=== PATIENT | male | born 1940 | race Caucasian/White ===

== ENCOUNTER 2017-10-03 11:58 | Day surgery (SDC) | payer MEDICARE, OTHER ==
[~2017-10-03] VITALS: Ht 182.9 cm; Wt 135.8 kg
[2017-10-03] MEDS ORDERED: MOME220I (13:06)
[2017-10-03] MEDS ORDERED: Plavix75 MG (13:06)
[2017-10-03] MEDS ORDERED: FISH OIL + D31 EACH (13:07)
[2017-10-03] MEDS ORDERED: LISI20 PO (13:07)
[2017-10-03] MEDS ORDERED: Alphagan P 5ML5 ML (13:08)
[2017-10-03] MEDS ORDERED: CARV25 PO (13:08)
[2017-10-03] MEDS ORDERED: Travatan Z5 ML (13:08)
[2017-10-03] MEDS ORDERED: DORZOPSO (13:09)
[2017-10-03] MEDS ORDERED: TERA5 (13:09)
[2017-10-03] MEDS ORDERED: METFORMIN HCL500 MG (13:10)
== END 2017-10-03 15:01 | disposition home or self-care (01) ==
LOC: ORSCSDS 11:58
PROVIDERS: Internal Medicine Gastroenterology
PROC: 0DJD8ZZ Inspection of Lower Intestinal Tract, Via Natural or Artificial Opening Endoscopic (ICD-10-PCS; principal; 2017-10-03 13:45)
DX: Z12.11 Encounter for screening for malignant neoplasm of colon (principal); K57.30 Diverticulosis of large intestine without perforation or abscess without bleeding; I10 Essential (primary) hypertension; Z87.891 Personal history of nicotine dependence; J44.9 Chronic obstructive pulmonary disease, unspecified; G47.33 Obstructive sleep apnea (adult) (pediatric); E11.9 Type 2 diabetes mellitus without complications; E66.01 Morbid (severe) obesity due to excess calories; Z68.41 Body mass index [BMI] 40.0-44.9, adult; Z79.899 Other long term (current) drug therapy
CPT/HCPCS: 82947; J7120

== ENCOUNTER 2022-02-23 06:24 | Day surgery (SDC) | payer OTHER ==
[~2022-02-23] VITALS: Ht 177.8 cm; Wt 132.1 kg
[~2022-02-23 06:24] MED LIST: Alphagan P 5ML5 ML BOTHEYES; CARV25 PO; DILT180 PO; DORZOPSO BOTHEYES; FISH OIL + D3 SOFTGE PO; LATANOPROST2.5 M3 BOTHEYES; LISI20 PO; METFORMIN HCL500 MG PO; MOME220I; Plavix75 MG PO; TERA5 PO; TRAM50 PO; Travatan Z5 ML
--- NOTE | 2022-02-23 07:32 | NUR ---
History, Chart, Medications and Allergies reviewed before start of procedure. Lungs clear T/O to Auscultation. Patient confirms NPO status and agrees with scheduled surgery.
--- NOTE | 2022-02-23 12:10 | NUR ---
PATIENT ARRIVED TO UNIT IN BED. VSS ON RA. AQUACEL, KAYLIE WRAP, & POLAR PACK TO R KNEE. PATIENT IS ABLE TO WIGGLE TOES, NO SENSATION TO FEET YET. TOLERATING JELLO AND WATER AT THIS TIME. ORIENTED TO ROOM AND CALL LIGHT.
[2022-02-23] MEDS ORDERED: Percocet 5-3251 EACH PO ×2 (14:50)
--- NOTE | 2022-02-23 17:53 | NUR ---
POD 0 R TKA. AQUACEL, KAYLIE WRAP, & POLAR PACK IN PLACE TO R KNEE. PAIN MANAGED WITH 1 OXYCODONE, TYLENOL & TORADOL PER EMAR. PATIENT WORKED WITH PHYSICAL THERAPY THIS AFTERNOON AND DID VERY WELL. 1P SBA TO BATHROOM W/ FWW & GB. EATING, DRINKING, & VOIDING WELL. WILL REPORT TO ONCOMING RN.
[2022-02-24 05:43] LABS: BASOPHILS ABSOLUTE AUTO 0.02 K/mm3 (0.00-0.23); BASOPHILS PERCENT AUTO 0 % (0-2); EOSINOPHILS PERCENT AUTO 0 % (0-6); Hematocrit 38.5 % (37.0-53.0); Hemoglobin 13.2 g/dL (13.5-17.5); IMMATURE GRAN ABSOLUTE AUTO 0.07 K/mm3 (0.00-0.10); IMMATURE GRAN PERCENT AUTO 0 % (0-1); LYMPHOCYTES ABSOLUTE AUTO 0.89 K/mm3 (0.84-5.20); LYMPHOCYTES PERCENT AUTO 6 % (21-46); MONOCYTES ABSOLUTE AUTO 0.83 K/mm3 (0.16-1.47); MONOCYTES PERCENT AUTO 5 % (4-13); Mean Corpuscular HGB 29.4 pg (26.0-34.0); Mean Corpuscular HGB Conc 34.3 g/dL (31.5-36.5); Mean Corpuscular Volume 86 fL (80-100); Mean Platelet Volume 10.9 fL (9.1-12.4); NEUTROPHILS ABSOLUTE AUTO 13.87 K/mm3 (1.96-9.15); NEUTROPHILS PERCENT AUTO 89 % (41-73); Platelet Count 189 K/mm3 (150-400); RDW Coefficient Variation 12.3 % (11.7-14.2); RDW Standard Deviation 38.3 fL (35.1-46.3); Red Blood Cell Count 4.49 M/mm3 (4.30-5.90); White Blood Cell Count 15.68 K/mm3 (4.00-11.30)
--- NOTE | 2022-02-24 05:49 | NUR ---
SHIFT SUMMARY PT POST OP DAY 0 RIGHT TOTAL KNEE. HE HAS DONE WELL OVERNIGHT AND PAIN HAS BEEN VERY MINIMAL, HE HAS BEEN UP AND AMBULATING. A/OX4 UT SLIGHTLY FORGETFUL AT TIMES, VERY [place]. DRESSING INTACT TO RIGHT KNEE. NO ACUTE CHANGES OVERNIGHT, DC TODAY. BED IN LOWEST POSITION, CALL LIGHT WITHIN REACH.
[2022-02-24 05:56] LABS: Bun/Creatinine Ratio 26.4 (12.0-20.0); Calcium, Blood 8.9 mg/dL (8.5-10.1); Creatinine, Blood 0.8 mg/dL (0.60-1.20); Potassium, Blood 3.6 mmol/L (3.5-5.5)
--- NOTE | 2022-02-24 12:17 | NUR ---
DISCHARGE PT PROVIDED WITH WRITTEN AND VERBAL DISCHARGE INSTRUCTIONS; PT AND HIS SPOUSE REPORTED UNDERSTANDING. DRESSINGS AND SCRIPT PROVIDED. PAIN MANAGED AT TIME OF DISCHARGE. PT CLEARED THERAPY, ABLE TO VOID, TOLERATING PO AND PAIN MANAGED WITH PO PAIN MEDICATION PRIOR TO DISCHARGE. PT ASSISTED OUT IN A WHEELCHAIR AT APPROXIMATELY 1200 BY MISAEL RUSSELL.
== END 2022-02-24 12:01 | disposition home or self-care (01) ==
LOC: ORSCMMR 06:24 → ORD 08:15 → ORSCMMR 08:15 → SURS 12:07 → ORSCMMR 02-24 12:01
PROVIDERS: Orthopaedic Surgery
PROC: 0SRC0JA Replacement of Right Knee Joint with Synthetic Substitute, Uncemented, Open Approach (ICD-10-PCS; principal; 2022-02-23 08:15)
PROC: 8E0Y0CZ Robotic Assisted Procedure of Lower Extremity, Open Approach (ICD-10-PCS; principal; 2022-02-23 08:15)
DX: M17.11 Unilateral primary osteoarthritis, right knee (principal); E66.01 Morbid (severe) obesity due to excess calories; Z68.41 Body mass index [BMI] 40.0-44.9, adult; Z87.891 Personal history of nicotine dependence; E11.9 Type 2 diabetes mellitus without complications; I10 Essential (primary) hypertension; Z79.02 Long term (current) use of antithrombotics/antiplatelets; Z79.84 Long term (current) use of oral hypoglycemic drugs; I25.10 Atherosclerotic heart disease of native coronary artery without angina pectoris; J44.9 Chronic obstructive pulmonary disease, unspecified; Z86.73 Personal history of transient ischemic attack (TIA), and cerebral infarction without residual deficits; Z79.899 Other long term (current) drug therapy
CPT/HCPCS: 27447; S2900; 36415; 73560-RT; 80048; 82947; 85025; 97110; 97116; 97161; 97530; A9270; C1776; J0171; J0690; J0735; J1100; J1815; J1885; J2250; J2370; J2405; J2704; J2795; J3010; J3370; J7060; J7120

== ENCOUNTER 2022-02-26 13:56 | Emergency (ER) | payer OTHER ==
[~2022-02-26] VITALS: Ht 177.8 cm; Wt 136.1 kg
[~2022-02-26 13:56] MED LIST changes: +Percocet 5-3251 EACH PO
[2022-02-26 15:45] LABS: BASOPHILS ABSOLUTE AUTO 0.01 K/mm3 (0.00-0.23); BASOPHILS PERCENT AUTO 0 % (0-2); EOSINOPHILS ABSOLUTE AUTO 0.03 K/mm3 (0.00-0.68); EOSINOPHILS PERCENT AUTO 0 % (0-6); Hematocrit 34.8 % (37.0-53.0); Hemoglobin 11.8 g/dL (13.5-17.5); IMMATURE GRAN ABSOLUTE AUTO 0.04 K/mm3 (0.00-0.10); IMMATURE GRAN PERCENT AUTO 0 % (0-1); LYMPHOCYTES ABSOLUTE AUTO 1.13 K/mm3 (0.84-5.20); LYMPHOCYTES PERCENT AUTO 10 % (21-46); MONOCYTES ABSOLUTE AUTO 1.23 K/mm3 (0.16-1.47); MONOCYTES PERCENT AUTO 11 % (4-13); Mean Corpuscular HGB 29.6 pg (26.0-34.0); Mean Corpuscular HGB Conc 33.9 g/dL (31.5-36.5); Mean Corpuscular Volume 87 fL (80-100); Mean Platelet Volume 10.5 fL (9.1-12.4); NEUTROPHILS ABSOLUTE AUTO 9.02 K/mm3 (1.96-9.15); NEUTROPHILS PERCENT AUTO 79 % (41-73); Platelet Count 190 K/mm3 (150-400); RDW Coefficient Variation 12.6 % (11.7-14.2); RDW Standard Deviation 40.3 fL (35.1-46.3); Red Blood Cell Count 3.98 M/mm3 (4.30-5.90); White Blood Cell Count 11.46 K/mm3 (4.00-11.30)
[2022-02-26 16:11] LABS: Albumin, Blood 3.1 g/dL (3.4-5.0); Albumin/Globulin Ratio 0.9 (0.8-1.8); Bilirubin, Total 0.6 mg/dL (0.1-1.0); Calcium, Blood 8.9 mg/dL (8.5-10.1); Creatinine, Blood 0.89 mg/dL (0.60-1.20); Globulin, Blood 3.5 g/dL (2.2-4.0); Potassium, Blood 3.7 mmol/L (3.5-5.5); Total Protein, Blood 6.6 g/dL (6.4-8.2)
[2022-02-26 16:51] LABS: International Normalized Ratio 0.96; Prothrombin Time Results 10.1 Sec (9.7-11.5)
== END 2022-02-26 21:18 | disposition home or self-care (01) ==
LOC: ER 13:56
PROVIDERS: Physician Assistant
DX: R42 Dizziness and giddiness (principal); R53.1 Weakness; E11.9 Type 2 diabetes mellitus without complications; I10 Essential (primary) hypertension; Z96.651 Presence of right artificial knee joint; Z91.81 History of falling; Z79.899 Other long term (current) drug therapy; Z79.84 Long term (current) use of oral hypoglycemic drugs; Z79.02 Long term (current) use of antithrombotics/antiplatelets
CPT/HCPCS: 36415; 70450; 80053; 82947; 85025; 85610; 93005; 93010; 99284-25

== ENCOUNTER → 2022-04-02 | Outpatient (CLI) | payer OTHER ==
[2022-04-02 13:38] LABS: RBC Count, Synovial Fluid 2100000 /mm3 (0-0); WBC Count, Synovial Fluid 1446 /mm3 (0-180)
[2022-04-02 13:56] LABS: Appearance, Synovial Fluid Bloody (Clear); Color, Synovial Fluid Red (None-P Yel)
[2022-04-02 18:48] LABS: Lymphs, Synovial Fluid 34 % (0-15); Neutrophils, Synovial Fluid 66 % (0-24)
== END | disposition home or self-care (01) ==
LOC: LAB 11:36 → LAB SHORT 11:36
PROVIDERS: Physician Assistant Surgical
DX: Z47.1 Aftercare following joint replacement surgery (principal); Z96.651 Presence of right artificial knee joint
CPT/HCPCS: 87070; 87075; 87205; 89051

== ENCOUNTER 2024-11-20 05:51 | Emergency (ER) | payer OTHER ==
[~2024-11-20] VITALS: Ht 182.9 cm; Wt 136.1 kg
[~2024-11-20 05:51] MED LIST changes: +AMOCLA875 PO; +ASPI81CH PO; +CEPH500 PO; +CLIN150 PO; +DOC250 PO; +HYDCHL25 PO; +LIDO700A20 TOP; +MAGCIT300 PO; +METF500 PO
[2024-11-20 06:16] LABS: BASOPHILS ABSOLUTE AUTO 0.02 K/mm3 (0.00-0.23); BASOPHILS PERCENT AUTO 0 % (0-2); EOSINOPHILS ABSOLUTE AUTO 0.01 K/mm3 (0.00-0.68); EOSINOPHILS PERCENT AUTO 0 % (0-6); Hematocrit 37.5 % (37.0-53.0); IMMATURE GRAN ABSOLUTE AUTO 0.05 K/mm3 (0.00-0.10); IMMATURE GRAN PERCENT AUTO 1 % (0-1); LYMPHOCYTES ABSOLUTE AUTO 0.85 K/mm3 (0.84-5.20); LYMPHOCYTES PERCENT AUTO 9 % (21-46); MONOCYTES ABSOLUTE AUTO 1.17 K/mm3 (0.16-1.47); MONOCYTES PERCENT AUTO 13 % (4-13); Mean Corpuscular HGB 29.3 pg (26.0-34.0); Mean Corpuscular HGB Conc 34.7 g/dL (31.5-36.5); Mean Corpuscular Volume 85 fL (80-100); Mean Platelet Volume 9.8 fL (9.1-12.4); NEUTROPHILS ABSOLUTE AUTO 6.99 K/mm3 (1.96-9.15); NEUTROPHILS PERCENT AUTO 77 % (41-73); Platelet Count 166 K/mm3 (150-400); RDW Coefficient Variation 12.5 % (11.7-14.2); RDW Standard Deviation 38.9 fL (35.1-46.3); Red Blood Cell Count 4.43 M/mm3 (4.30-5.90); White Blood Cell Count 9.09 K/mm3 (4.00-11.30)
[2024-11-20 06:24] LABS: Source, Urine Clean Catch
[2024-11-20 06:33] LABS: Bilirubin, Urine Neg (Neg); Blood, Urine 4+ (Neg); Glucose Qualitative, Urine 1+ (Neg); Ketones, Urine 3+ (Neg); Leukocyte Esterase, Urine Neg (Neg); Nitrite, Urine Neg (Neg); Protein, Urine 4+ (Neg); Specific Gravity, Urine 1.015 (1.003-1.022); Urobilinogen, Urine 1+ (Normal); pH, Urine 6.5 (5.0-8.0)
[2024-11-20 06:46] LABS: Albumin, Blood 3.5 g/dL (3.4-5.0); Bilirubin, Total 1.4 mg/dL (0.1-1.0); Bun/Creatinine Ratio 20.3 (12.0-20.0); Calcium, Blood 8.5 mg/dL (8.5-10.1); Creatinine, Blood 0.79 mg/dL (0.60-1.20); Globulin, Blood 3.5 g/dL (2.2-4.0); Potassium, Blood 3.5 mmol/L (3.5-5.5)
[2024-11-20 06:50] LABS: Appearance, Urine Clear (Clear); Color, Urine Yellow (P-Yellow)
[2024-11-20 06:54] LABS: Bacteria Not Seen /hpf; Squamous Epithelial Cells Not Seen /hpf (Few); White Blood Cells, Urine 0-2 /hpf (0-5)
[2024-11-20] MEDS ORDERED: TAMS.4ER PO (08:02)
[2024-11-20 09:45] VITALS: BP 123/79
== END 2024-11-20 09:55 | disposition home or self-care (01) ==
LOC: ER 05:51
PROVIDERS: Emergency Medicine
DX: R35.0 Frequency of micturition (principal); J06.9 Acute upper respiratory infection, unspecified; I10 Essential (primary) hypertension; E11.9 Type 2 diabetes mellitus without complications; Z88.8 Allergy status to other drugs, medicaments and biological substances; Z79.82 Long term (current) use of aspirin; Z79.84 Long term (current) use of oral hypoglycemic drugs; Z79.899 Other long term (current) drug therapy
CPT/HCPCS: 71046; 80053; 81001; 85025; 99284-25

== ENCOUNTER 2025-01-08 02:16 | Emergency (ER) | payer OTHER ==
[~2025-01-08] VITALS: Ht 182.9 cm; Wt 136.1 kg
[~2025-01-08 02:16] MED LIST changes: -Alphagan P 5ML5 ML BOTHEYES; +BRIMONIDINE TART5 M2 BOTHEYES; -DORZOPSO BOTHEYES; -HYDCHL25 PO; +LISINOPRIL-HCT1 EACH PO; -METF500 PO; +METFORMIN HCL500 M2 PO; +TAMS.4ER PO; +TIMDOROPSO BOTHEYES
[2025-01-08] MEDS ORDERED: Ipratropium/Albuterol SulF 2.5-0.5MG/3 ML Amp INH ONE (02:35)
[2025-01-08 02:41] LABS: BASOPHILS ABSOLUTE AUTO 0.02 K/mm3 (0.00-0.23); BASOPHILS PERCENT AUTO 0 % (0-2); EOSINOPHILS ABSOLUTE AUTO 0.27 K/mm3 (0.00-0.68); EOSINOPHILS PERCENT AUTO 3 % (0-6); Hematocrit 36.7 % (37.0-53.0); Hemoglobin 11.9 g/dL (13.5-17.5); IMMATURE GRAN ABSOLUTE AUTO 0.02 K/mm3 (0.00-0.10); IMMATURE GRAN PERCENT AUTO 0 % (0-1); LYMPHOCYTES ABSOLUTE AUTO 0.86 K/mm3 (0.84-5.20); LYMPHOCYTES PERCENT AUTO 9 % (21-46); MONOCYTES PERCENT AUTO 8 % (4-13); Mean Corpuscular HGB 28.4 pg (26.0-34.0); Mean Corpuscular HGB Conc 32.4 g/dL (31.5-36.5); Mean Corpuscular Volume 88 fL (80-100); Mean Platelet Volume 10.3 fL (9.1-12.4); NEUTROPHILS PERCENT AUTO 80 % (41-73); Platelet Count 128 K/mm3 (150-400); RDW Coefficient Variation 13.2 % (11.7-14.2); RDW Standard Deviation 42.6 fL (35.1-46.3); Red Blood Cell Count 4.19 M/mm3 (4.30-5.90); White Blood Cell Count 9.37 K/mm3 (4.00-11.30)
[2025-01-08 03:00] LABS: Albumin, Blood 3.3 g/dL (3.4-5.0); Bilirubin, Total 0.8 mg/dL (0.1-1.0); Bun/Creatinine Ratio 23.4 (12.0-20.0); Calcium, Blood 8.8 mg/dL (8.5-10.1); Creatinine, Blood 0.77 mg/dL (0.60-1.20); Globulin, Blood 3.2 g/dL (2.2-4.0); Magnesium, Blood 1.8 mg/dL (1.6-2.4); Potassium, Blood 3.9 mmol/L (3.5-5.5); Total Protein, Blood 6.5 g/dL (6.4-8.2)
[2025-01-08 03:05] LABS: CORONAVIRUS COVID-19 AG Negative (NEGATIVE); INFLUENZA A AG Negative (NEGATIVE); INFLUENZA B AG Negative (NEGATIVE)
[2025-01-08] MEDS ORDERED: Albuterol 2.5 MG/3 ML VIAL INH ONE (03:50)
[2025-01-08 04:00] VITALS: BP 129/83
[2025-01-08] MEDS ORDERED: RX Prepack Albuterol 1 PREPACK/6.7 GM INH UD ONE (04:45)
== END 2025-01-08 04:58 | disposition home or self-care (01) ==
LOC: ER 02:16
PROVIDERS: Student in an Organized Health Care Education/Training Program
DX: R53.1 Weakness (principal); R06.2 Wheezing; E11.9 Type 2 diabetes mellitus without complications; I10 Essential (primary) hypertension; Z79.899 Other long term (current) drug therapy; Z79.82 Long term (current) use of aspirin; Z79.84 Long term (current) use of oral hypoglycemic drugs; Z88.8 Allergy status to other drugs, medicaments and biological substances
CPT/HCPCS: 71045; 80053; 83735; 83880; 84484; 85025; 87428-QW; 93005; 93010; 94640; 94664; 99285-25; A9270

== ENCOUNTER 2025-01-09 16:43 | Inpatient (IN) | payer OTHER ==
[~2025-01-09] VITALS: Ht 182.9 cm; Wt 147.9 kg
[2025-01-09] MEDS ORDERED: Ondansetron HCl 2 MG / ML 2ML Vial IV ONE (17:15)
[2025-01-09] MEDS ORDERED: HYDROmorphone HCl/Pf 1MG SYR IV ONE (17:15)
[2025-01-09] MEDS ORDERED: Ipratropium/Albuterol SulF 2.5-0.5MG/3 ML Amp INH ONE (17:30)
[2025-01-09 17:45] LABS: Source, Urine Foley catheter
[2025-01-09 17:47] LABS: Appearance, Urine Bloody (Clear); Bilirubin, Urine Neg (Neg); Blood, Urine 5+ (Neg); Color, Urine Red (P-Yellow); Glucose Qualitative, Urine Neg (Neg); Ketones, Urine 2+ (Neg); Leukocyte Esterase, Urine 3+ (Neg); Nitrite, Urine Neg (Neg); Protein, Urine 3+ (Neg); Urobilinogen, Urine NORM (Normal)
[2025-01-09 17:55] LABS: Bacteria Few /hpf; Red Blood Cells, Urine TNTC /hpf (0-2); Squamous Epithelial Cells Not Seen /hpf (Few)
[2025-01-09] MEDS ORDERED: PredniSONE 20 MG Tab PO ONE (20:20)
[2025-01-09] MEDS ORDERED: LORazepam 2 MG/ML 1ML Injection IV ONE (21:45)
[2025-01-09] MEDS ORDERED: CefTRIAXone Sodium 2,000 MG in NS 100 ML IV ONE (22:10)
[2025-01-09] MEDS ORDERED: Haloperidol Lactate Inj. 5 MG/ML Injection IV SCH (22:20)
[2025-01-09 22:44] LABS: BASOPHILS ABSOLUTE AUTO 0.02 K/mm3 (0.00-0.23); BASOPHILS PERCENT AUTO 0 % (0-2); EOSINOPHILS ABSOLUTE AUTO 0.23 K/mm3 (0.00-0.68); EOSINOPHILS PERCENT AUTO 3 % (0-6); Hematocrit 37.1 % (37.0-53.0); Hemoglobin 12.2 g/dL (13.5-17.5); IMMATURE GRAN ABSOLUTE AUTO 0.03 K/mm3 (0.00-0.10); IMMATURE GRAN PERCENT AUTO 0 % (0-1); LYMPHOCYTES ABSOLUTE AUTO 0.96 K/mm3 (0.84-5.20); LYMPHOCYTES PERCENT AUTO 11 % (21-46); MONOCYTES ABSOLUTE AUTO 0.85 K/mm3 (0.16-1.47); MONOCYTES PERCENT AUTO 9 % (4-13); Mean Corpuscular HGB 28.6 pg (26.0-34.0); Mean Corpuscular HGB Conc 32.9 g/dL (31.5-36.5); Mean Corpuscular Volume 87 fL (80-100); NEUTROPHILS ABSOLUTE AUTO 6.99 K/mm3 (1.96-9.15); NEUTROPHILS PERCENT AUTO 77 % (41-73); Platelet Count 141 K/mm3 (150-400); RDW Coefficient Variation 13.2 % (11.7-14.2); RDW Standard Deviation 41.7 fL (35.1-46.3); Red Blood Cell Count 4.27 M/mm3 (4.30-5.90); White Blood Cell Count 9.08 K/mm3 (4.00-11.30)
[2025-01-09] MEDS ORDERED: Azithromycin 500 MG in NS 250 ML IV ONE (22:50)
[2025-01-09 23:18] LABS: Albumin, Blood 3.3 g/dL (3.4-5.0); Albumin/Globulin Ratio 1.1 (0.8-1.8); Bilirubin, Total 1.3 mg/dL (0.1-1.0); Calcium, Blood 8.4 mg/dL (8.5-10.1); Creatinine, Blood 0.78 mg/dL (0.60-1.20); Globulin, Blood 2.9 g/dL (2.2-4.0); Potassium, Blood 3.7 mmol/L (3.5-5.5); Total Protein, Blood 6.2 g/dL (6.4-8.2)
[2025-01-10] VITALS (7 sets, daily range): BP systolic 149–182; BP diastolic 54–114
[2025-01-10] MEDS ORDERED: Ondansetron 4 MG TAB PO PRN (00:20)
[2025-01-10] MEDS ORDERED: Ipratropium/Albuterol SulF 2.5-0.5MG/3 ML Amp INH SCH (00:20)
[2025-01-10 05:32] LABS: BASOPHILS ABSOLUTE AUTO 0.02 K/mm3 (0.00-0.23); BASOPHILS PERCENT AUTO 0 % (0-2); EOSINOPHILS ABSOLUTE AUTO 0.01 K/mm3 (0.00-0.68); EOSINOPHILS PERCENT AUTO 0 % (0-6); Hematocrit 36.7 % (37.0-53.0); Hemoglobin 11.9 g/dL (13.5-17.5); IMMATURE GRAN ABSOLUTE AUTO 0.05 K/mm3 (0.00-0.10); IMMATURE GRAN PERCENT AUTO 1 % (0-1); LYMPHOCYTES ABSOLUTE AUTO 0.46 K/mm3 (0.84-5.20); LYMPHOCYTES PERCENT AUTO 5 % (21-46); MONOCYTES ABSOLUTE AUTO 0.15 K/mm3 (0.16-1.47); MONOCYTES PERCENT AUTO 2 % (4-13); Mean Corpuscular HGB 29.1 pg (26.0-34.0); Mean Corpuscular HGB Conc 32.4 g/dL (31.5-36.5); Mean Corpuscular Volume 90 fL (80-100); Mean Platelet Volume 10.5 fL (9.1-12.4); NEUTROPHILS ABSOLUTE AUTO 8.97 K/mm3 (1.96-9.15); NEUTROPHILS PERCENT AUTO 93 % (41-73); Platelet Count 135 K/mm3 (150-400); RDW Coefficient Variation 13.2 % (11.7-14.2); RDW Standard Deviation 43.3 fL (35.1-46.3); Red Blood Cell Count 4.09 M/mm3 (4.30-5.90); White Blood Cell Count 9.66 K/mm3 (4.00-11.30)
[2025-01-10] MEDS ORDERED: Ipratropium/Albuterol SulF 2.5-0.5MG/3 ML Amp INH PRN (05:35)
[2025-01-10 06:09] LABS: Albumin, Blood 3.1 g/dL (3.4-5.0); Bilirubin, Total 0.9 mg/dL (0.1-1.0); Bun/Creatinine Ratio 22.9 (12.0-20.0); Calcium, Blood 8.4 mg/dL (8.5-10.1); Creatinine, Blood 0.7 mg/dL (0.60-1.20); Potassium, Blood 4.1 mmol/L (3.5-5.5); Total Protein, Blood 6.1 g/dL (6.4-8.2)
[2025-01-10] MEDS ORDERED: Insulin Regular 100 UNIT/ML 10ML Vial SC SCH (07:30)
[2025-01-10] MEDS ORDERED: LORazepam 2 MG/ML 1ML Injection IV PRN (07:40)
[2025-01-10 08:37] LABS: IMMATURE RETIC FRACTION 13.1 % (2.3-16.0); RETIC HGB EQUIVALENT 30.7 pg (28.20-36.60); RETICULOCYTE ABSOLUTE 0.0628 M/mm3 (0.0200-0.1100); RETICULOCYTE COUNT PERCENT 1.54 % (0.50-2.50)
[2025-01-10 08:58] LABS: Base Excess Venous 3.3 mmol/L; Bicarbonate Venous 26.7 mmol/L (24.0-30.0); PCO2 Venous 49.4 mmHg (38-42); pH Blood Venous 7.37 (7.34-7.37)
[2025-01-10] MEDS ORDERED: Sennosides 8.6 MG Tab PO SCH (09:00)
[2025-01-10] MEDS ORDERED: Enoxaparin 40 MG/0.4 ML SYR SC SCH (09:00)
[2025-01-10] MEDS ORDERED: Lactobacil 2-S.Thermo-Bifido 1 1 Cap PO SCH (09:00)
[2025-01-10] MEDS ORDERED: CefTRIAXone Sodium 1,000 MG in NS 100 ML IV SCH (09:00)
[2025-01-10] MEDS ORDERED: Azithromycin 250 MG Tab PO SCH (09:00)
[2025-01-10 09:08] LABS: Magnesium, Blood 1.6 mg/dL (1.6-2.4); Percent Saturation 7.6 % (20.0-50.0)
[2025-01-10 09:27] LABS: Phosphorus, Blood 3.8 mg/dL (2.5-4.9); Thyroid Stimulating Hormone 0.625 uIU/mL (0.360-4.800)
[2025-01-10] MEDS ORDERED: Furosemide 10 MG/ML 4ML Vial IV SCH (13:00)
[2025-01-10 13:41] LABS: U Amphetamine Screen Not Detected; U Barbituate Screen Not Detected; U Benzodiazapine Screen DETECTED; U Buprenorphine Screen Not Detected; U Cannabinoids Screen DETECTED; U Cocaine Screen Not Detected; U Methadone Screen Not Detected; U Methamphetamine Screen Not Detected; U Opiates Screen Not Detected; U Oxycodone Screen Not Detected; U Phencyclidine Screen Not Detected
--- NOTE | 2025-01-10 14:14 | NUR ---
Patient was soft snoring. Volunteer person entered room to provided "thank you" folder and bermudian plag. jostled awake patient increased agitation from fidgeting lethargia to full blown throwing bed items. Clamped hands around flag and waved in air like a sword. Clamped my hand in other hand. Knocked pillow and anything in reach across floor. AUTOMOBILE LIGHTS ASSEMBLER came in as the blue folder went flying. Contents allover floor. We got him untangled and unclamped, still trying to impale us with flag stake. Room cleanup, calm voices, gasoline pump mechanic left to report to nurse and request anxiety meds prn. I started removing remaining items from side table to limit throwables. Fast grabs and threw toilotries and then grabbed the entire table and knocked it,threw it onto the ground. Picked it up and straightened room. patient calmed. R.N here now admin meds. Peaceful chat, Back to soft snoring.
[2025-01-10 16:19] LABS: Adenovirus Not Detected (NOT DETECT); Bordetella pertussis Not Detected (NOT DETECT); Chlamydophila pneumoniae Not Detected (NOT DETECT); Coronavirus 229E Not Detected (NOT DETECT); Coronavirus HKU1 Not Detected (NOT DETECT); Coronavirus NL63 Not Detected (NOT DETECT); Coronavirus OC43 Not Detected (NOT DETECT); Human Metapneumovirus Not Detected (NOT DETECT); Human Rhinovirus/Enterovirus Not Detected (NOT DETECT); Influenza A/2009-H1 Not Detected (NOT DETECT); Influenza A/H1 Not Detected (NOT DETECT); Influenza A/H3 Not Detected (NOT DETECT); Influenza B Not Detected (NOT DETECT); Mycoplasma pneumoniae Not Detected (NOT DETECT); Parainfluenza Virus 1 Not Detected (NOT DETECT); Parainfluenza Virus 2 Not Detected (NOT DETECT); Parainfluenza Virus 3 Not Detected (NOT DETECT); Parainfluenza Virus 4 Not Detected (NOT DETECT); Respiratory Syncytial Virus Not Detected (NOT DETECT); SARS-Cov-2 (COVID-19), BioFire Not Detected (NOT DETECT)
[2025-01-10] MEDS ORDERED: ATOR40TA PO (17:02)
[2025-01-10] MEDS ORDERED: CAPSAICIN 0.075% TOP (17:05)
[2025-01-10] MEDS ORDERED: ALLEGRA ALLERG180 MG PO (17:06)
[2025-01-10] MEDS ORDERED: Flonase 0.05% N16 GM (17:07)
[2025-01-10] MEDS ORDERED: IPRATROPIUM BRO30 ML (17:08)
[2025-01-10] MEDS ORDERED: LIDO700A20 TOP (17:08)
[2025-01-10] MEDS ORDERED: MOME220I INH (17:13)
[2025-01-10] MEDS ORDERED: TRAM50 PO (17:19)
--- NOTE | 2025-01-10 17:54 | NUR ---
SUMMARY- PT ALERT TO SELF AND FAMILY. HAS 1:1 SITTER RELATED TO IMPULSIVENESS, AGITATION. THIS AM PT WAS RESTLESS, PULLING OFF TELE AND TRYING TO PULL LOUIE OUT. MEDICATED WITH ATIVAN 1MG IV X2 TODAY. EACH TIME PT BECAME MORE CALM AND RESTED. PT SLEPT A MAJORITY OF THE DAY AND STATES HE HAS NOT SLEPT IN MANY DAYS AND HAS ALSO BEEN REFUSING TO EAT. PT BECAME MORE ALERT AND AWARE/DIRECTABLE AROUND 1600, ABLE TO ASSIST PT TO DRINK SOME JUICE AND COMPLETED A WHOLE ENSURE. GIVEN LASIX ONE TIME DOSE, URINE BECAME MED/LIGHT YELLLOW. PT REMAINS ON OXYGEN 2LNC, STRONG COUGH. COUGH NOT ASSOCIATED WITH PO INTAKE, SWALLOW SEEMS INTACT. ATTEMPT TO WEAN OXYGEN FAILED, DESAT TO 85% ROOM AIR WITHIN A FEW MINUTES. IN AND OUT TODAY. PHYSICAL THERAPY WAS NOT ABLE TO PERFORM EVAL PT NOT ABLE TO FOLLOW DIRECTION WELL, WILL ATTEMPT TOMORROW. WILL RERPOT TO BLAKE LEON
[2025-01-10] MEDS ORDERED: Azithromycin 500 MG in NS 250 ML IV SCH (21:00)
[2025-01-11] VITALS (7 sets, daily range): BP systolic 171–194; BP diastolic 67–147
--- NOTE | 2025-01-11 04:23 | NUR ---
SHIFT SUMMARY PT ALERT ORIENTED X 4 BUT CAN BE VERY CONFUSED AT TIMES. REMAINS WITH A LOUIE CATHETER WHICH HE DOES PULL ON AND IT CAUSES HIM TO HAVE BLEEDING. REMAINS ON ROCEPHIN AND ZITHROMAX ORDERED FOR UTI. HE CONTINUES ON A CONTINUOUS PULSE OX SATTING ART 98% ON 2L. HE DOES HAVE SOME DIFFICULTY WITH SWALLOWING AND A ST EVAL WAS PUT IN. HE WAS GIVEN ONE DOSE OF ATIVAN. VSS ON 2L OF O2. FS DONE AC AND HS WAS 207. CONTINUES ON TELEMETRY AT [facility] AT 84. BED ALARM ON AT ALL TIMES. RESTING IN BED AT THIS TIME WITH CALL LIGHT IN REACH
[2025-01-11] MEDS ORDERED: NS 250 ML IV PRN (09:45)
[2025-01-11 10:00] LABS: BASOPHILS ABSOLUTE AUTO 0.02 K/mm3 (0.00-0.23); BASOPHILS PERCENT AUTO 0 % (0-2); EOSINOPHILS ABSOLUTE AUTO 0.11 K/mm3 (0.00-0.68); EOSINOPHILS PERCENT AUTO 1 % (0-6); Hematocrit 35.4 % (37.0-53.0); Hemoglobin 11.5 g/dL (13.5-17.5); IMMATURE GRAN ABSOLUTE AUTO 0.03 K/mm3 (0.00-0.10); IMMATURE GRAN PERCENT AUTO 0 % (0-1); LYMPHOCYTES ABSOLUTE AUTO 0.99 K/mm3 (0.84-5.20); LYMPHOCYTES PERCENT AUTO 11 % (21-46); MONOCYTES ABSOLUTE AUTO 0.81 K/mm3 (0.16-1.47); MONOCYTES PERCENT AUTO 9 % (4-13); Mean Corpuscular HGB 28.5 pg (26.0-34.0); Mean Corpuscular HGB Conc 32.5 g/dL (31.5-36.5); Mean Corpuscular Volume 88 fL (80-100); Mean Platelet Volume 10.1 fL (9.1-12.4); NEUTROPHILS ABSOLUTE AUTO 7.26 K/mm3 (1.96-9.15); NEUTROPHILS PERCENT AUTO 79 % (41-73); Platelet Count 140 K/mm3 (150-400); RDW Coefficient Variation 13.2 % (11.7-14.2); RDW Standard Deviation 42.5 fL (35.1-46.3); Red Blood Cell Count 4.04 M/mm3 (4.30-5.90); White Blood Cell Count 9.22 K/mm3 (4.00-11.30)
[2025-01-11 10:18] LABS: Bun/Creatinine Ratio 21.7 (12.0-20.0); Calcium, Blood 8.1 mg/dL (8.5-10.1); Creatinine, Blood 0.79 mg/dL (0.60-1.20); Potassium, Blood 3.6 mmol/L (3.5-5.5)
[2025-01-11] MEDS ORDERED: Fluticasone 0.05% Nasal Spray PRN (11:35)
[2025-01-11] MEDS ORDERED: TraMADol HCl 50 MG Tab PO PRN (11:40)
[2025-01-11] MEDS ORDERED: Lidocaine 4% 1 Patch TOP PRN (11:55)
[2025-01-11] MEDS ORDERED: Loratadine 10 MG Tab PO PRN (11:55)
[2025-01-11] MEDS ORDERED: Carvedilol 25 MG Tab PO SCH (12:00)
[2025-01-11] MEDS ORDERED: Capsaicin 0.025% Cream TOP SCH (13:00)
[2025-01-11] MEDS ORDERED: HydrALAZINE HCl 20 MG / ML 1ML Vial IV PRN (14:55)
[2025-01-11] MEDS ORDERED: Mometasone Furoate Inhaler 220 mcg 14 ACT INH SCH ×2 (18:20→21:00)
--- NOTE | 2025-01-11 19:12 | NUR ---
SHIFT SUMMARY PT A&O TO SELF AND FAMILY. PT HAS CONFUSION, AND AGITATION, REFUSES CARE. PT HAS ONE ON ONE SITTER DUE TO PULLING AT LINES AND TRYING TO GET OUT OF BED. PT ADMITTED DUE TO PNEUMONIA. PT REPORTS NO PAIN/CHEST DISCOMFORT/SOB. PT ON 2L VIA N/C THIS AM. PT ON ROOM AIR. SPO2 IS 95% CONT. PULSE OX IN PLACE. RT SAW PT THIS AM. SPEECH THERAPY EVALUATED PT TODAY. PT HAD BARIUM SWALLOW STUDY. PT TAKES MEDS CRUSHED W APPLESAUCE. NO STRAWS. SOFT BITE SIZE LEVEL 6. PT ENCOURAGED TO EAT, BUT "REFUSED" MEALS TODAY. PT BLOOD PRESSURE WAS ELEVATED. GAVE PRN HYDRALAZINE 10MG. BLOOD PRESSURE REMAINED HIGH, BUT PT REFUSED PO MEDS/APPLESAUCE FOR BP MANAGEMENT, NOTIFIED, NIGHT RN NOTIFIED. PT Q2 TURNED. THIS AM DR. WILLARD D/C TELE AND LOUIE, DUE TO PT ATTEMPTING TO PULL LINES. PT HAD ONE INC. VOID POST LOUIE REMOVAL. AT END OF SHIFT PT REPORTED NEEDING TO PEE, SHIATSU THERAPIST ATTEMPTED TO HELP/ENCOURAGE PT TO USE URINAL. PT STATED "UNABLE TO VOID" NIGHT RN NOTIFIED, PT MAY NEED BLADDER SCAN. PT ACHS. BLOOD SUGAR DIDN'T GO ABOVE 200. INSULIN NOT GIVEN DUE TO PT NOT EATING, NPO THROUGH SHIFT. DR. WILLARD CONSULTED IF SHOULD GIVE OR HOLD INSULIN. DR. WILLARD STATED "HOLD INSULIN", PT IN BED, BED IN LOWEST POSITION, CALL LIGHT IN REACH.
[2025-01-11] MEDS ORDERED: Docusate Sodium 250 MG Cap PO SCH (21:00)
[2025-01-11] MEDS ORDERED: Doxazosin Mesylate 2 MG Tab PO SCH (21:00)
[2025-01-11] MEDS ORDERED: Dorzolamide/Timolol Opth Soln 10 ML BOTHEYES SCH (21:00)
[2025-01-11] MEDS ORDERED: Brimonidine Tartrate 0.2% Opth 5 ml BOTHEYES SCH (21:00)
[2025-01-12] VITALS (7 sets, daily range): BP systolic 133–215; BP diastolic 60–123
--- NOTE | 2025-01-12 05:55 | NUR ---
SHIFT SUMMARY NOC PT A/O TO SELF AND . CONFUSED, BUT HAS BEEN COOPERATIVE WITH CARE. BP ELEVATED STILL, MEDICATED PER EMAR. AT BEGINNING OF SHIFT PT BLADDER SCANNED PER POLICY AFTER LOUIE REMOVED EARLIER IN DAY AND PT FOUND TO BE RETAINING 1122 ML, HOSPITALIST NOTIFIED AND ORDER TO STRAIGHT CATH GIVEN AND 1300 ML OUT, POST VOID SCAN SHOWED 0 ML. PT HAS HAD MULTIPLE INCONTINENT VOIDS SINCE. IV ABX PER EMAR. HS CBG 178 CNI. PT HAS 1:[address] DUE TO BEING COMBATIVE DURING DAY SHIFT PULLING AT LINES, PT TRIED TO PULL IV AND SITE REENFORCED AND 1 MG IV ATIVAN GIVEN. PT CALLED FOR UPDATE ON PT CLINICAL STATUS. PT CURRENTLY RESTING WITH BED IN LOWEST POSITION, AND CALL LIGHT WITHIN REACH.
[2025-01-12] MEDS ORDERED: Latanoprost 0.005% Opth Soln 2.5 ML BOTHEYES SCH (09:00)
[2025-01-12] MEDS ORDERED: Clopidogrel Bisulfate 75 MG Tab PO SCH (09:00)
[2025-01-12] MEDS ORDERED: Aspirin 81 MG Chew PO SCH (09:00)
[2025-01-12] MEDS ORDERED: Atorvastatin 40 MG Tab PO SCH (09:00)
[2025-01-12] MEDS ORDERED: Lisinopril 20 MG Tab PO SCH (09:00)
[2025-01-12 14:24] LABS: Acinetobacter baumannii DNA Not Detected copy/mL (NOT DETECT); Adenovirus DNA Not Detected (NOT DETECT); Chlamydia pneumonia Not Detected (NOT DETECT); Enterobacter cloacae DNA Not Detected copy/mL (NOT DETECT); Escherichia coli DNA Not Detected copy/mL (NOT DETECT); Haemophilus influenzae DNA Not Detected copy/mL (NOT DETECT); Klebsiella aerogenes DNA Not Detected copy/mL (NOT DETECT); Klebsiella oxytoca DNA Not Detected copy/mL (NOT DETECT); Klebsiella pneumoniae DNA Not Detected copy/mL (NOT DETECT); Legionella pneumophila Not Detected (NOT DETECT); Moraxella catarrhalis DNA Not Detected copy/mL (NOT DETECT); Mycoplasma pneumoniae Not Detected (NOT DETECT); Proteus sp DNA Not Detected copy/mL (NOT DETECT); Pseudomonas aeruginosa DNA Not Detected copy/mL (NOT DETECT); Serratia marcescens DNA Not Detected copy/mL (NOT DETECT); Staphylococcus aureus DNA Not Detected copy/mL (NOT DETECT); Streptococcus agalactiae DNA Not Detected copy/mL (NOT DETECT); Streptococcus pneumoniae DNA Not Detected copy/mL (NOT DETECT); Streptococcus pyogenes DNA Not Detected copy/mL (NOT DETECT)
[2025-01-12 14:25] LABS: Human Coronavirus RNA Not Detected (NOT DETECT); Human Metapneumovirus RNA Not Detected (NOT DETECT); Influenza virus A RNA Not Detected (NOT DETECT); Influenza virus B RNA Not Detected (NOT DETECT); Parainfluenza virus RNA Not Detected (NOT DETECT); Respiratory syncytial Vir RNA Not Detected (NOT DETECT); Rhinovirus+Enterovirus RNA Not Detected (NOT DETECT)
--- NOTE | 2025-01-12 19:00 | NUR ---
SHIFT SUMMARY PT A&O TO SELF AND FAMILY. PT HAS CONFUSION, PT MORE COOROPERATIVE WITH CARE TODAY, STILL REFUSES CARE AT TIMES. PT HAS HIGH BLOOD PRESSURE, GAVE 20 OF HYDRALAZINE, BLOOD PRESSURE POST MEDICATION WAS 133/60. PT ON ROOM AIR. PT SPO2 IS 92%. PT DOESN'T EAT ADEQUATE ALTHOUGH HAS FEEDER ASSISTANCE AND ENCOURAGED TO EAT. PT HAD NO STRAWS. PT REPORTS "NO CHEST PAIN/DISCOMFORT/PAIN" PT WORKED WITH PHYSICAL THERAPY TODAY AND PT REPORTED "ABLE TO DO STAND AT SIDE OF BED." FAMILY AT BEDSIDE DURING PART OF SHIFT. PT IN BED, BED IN LOWEST POSITION, CALL LIGHT IN REACH. PT HAS ONE ON ONE SITTER, DUE TO INTERMITTENT IMPULSIVITY. PT SWALLOWS MEDS CRUSHED IN APPLESAUCE. PT TURNED Q2. PT ACHS, PT REFUSED INSULIN AND DIDN'T EAT ADEQUATE TODAY. REPORTED "NEEDING TO VOID BUT COULDN'T" PT BLADDER SCANNED 666ML, THEN ONE INC VOID, POST VOID BLADDER SCAN NOTED GREATER THAN 400 URINE, PT STRAIGHT CATHED ONCE DURING SHIFT DUE TO RETAINING URINE, PER ORDER, DR. WILLARD NOTIFIED. DR. WILLARD REPORTED "NOT WANTING TO INSERT LOUIE DUE TO PT PREVIOUSLY ATTEMPTED TO PULL LOUIE."
[2025-01-12] MEDS ORDERED: QUEtiapine Fumarate 25 MG Tab PO SCH (21:00)
[2025-01-13] VITALS (7 sets, daily range): BP systolic 117–203; BP diastolic 45–94
[2025-01-13] MEDS ORDERED: OLANZapine 10 MG Vial IM PRN ×2 (03:05→08:15)
--- NOTE | 2025-01-13 04:55 | NUR ---
SHIFT SUMMARY NOC PT A/O TO SELF AND . COMBATIVE AND TOOK A SWING AT ANOTHER RN. HOSPITALIST NOTIFIED AND ONE TIME DOSE IM ZYPREXA GIVEN BP ELEVATED AND MEDICATED PER EMAR. HS CBG 186 CNI. AT TIMES PT STILL ATTEMPTS OOB UNSAFE, BUT IS TOO WEAK TO GET UP, AND HAS NOT ATTEMPTED TO PULL IV OUT. SITTER STILL IN PLACE. PT HAS HAD MINIMAL URINE OUTPUT. PT IS WAITING ON [facility]AC[facility] ONCE MEDICALLY STABLE FOR DISCHARGE. PT CURRENTLY RESTING WITH BED IN LOWEST POSITION, AND CALL LIGHT WITHIN REACH.
--- NOTE | 2025-01-13 04:57 | NUR ---
REPORT GIVEN TO TONY JAMES @ 8863 TO ASSUME CARE OF PT FOR REMAINDER OF SHIFT.
--- NOTE | 2025-01-13 05:18 | NUR ---
ASSUMPTION OF CARE: ASSUMED CARE OF PT AT 0440 FROM JARRELL LEON.PT IS CURRENTLY ASLEEP AFTER ZYPREXA WAS GIVEN FOR AGITATION.PT WAS ALSO GIVEN HYDRALAZINE FOR HTN (SEE EMAR) PT'S BP HAS NOW STABALIZED. LAB WAS UNABLE TO DRAW LABS AND WILL TRY AGAIN AT 0900. PT HAS A 1:1 SITTER AND IS COMFORTABLE AT THE MOMENT. PT HAS BED LOW AND LOCKED W/BED ALARM SET FOR SAFETY.
[2025-01-13] MEDS ORDERED: CefTRIAXone Sodium 1,000 MG in NS 100 ML IV SCH (09:00)
[2025-01-13 11:08] LABS: BASOPHILS ABSOLUTE AUTO 0.03 K/mm3 (0.00-0.23); BASOPHILS PERCENT AUTO 0 % (0-2); EOSINOPHILS ABSOLUTE AUTO 0.21 K/mm3 (0.00-0.68); EOSINOPHILS PERCENT AUTO 2 % (0-6); Hematocrit 40.4 % (37.0-53.0); Hemoglobin 13.5 g/dL (13.5-17.5); IMMATURE GRAN ABSOLUTE AUTO 0.04 K/mm3 (0.00-0.10); IMMATURE GRAN PERCENT AUTO 0 % (0-1); LYMPHOCYTES ABSOLUTE AUTO 0.97 K/mm3 (0.84-5.20); LYMPHOCYTES PERCENT AUTO 10 % (21-46); MONOCYTES ABSOLUTE AUTO 0.96 K/mm3 (0.16-1.47); MONOCYTES PERCENT AUTO 9 % (4-13); Mean Corpuscular HGB 29.2 pg (26.0-34.0); Mean Corpuscular HGB Conc 33.4 g/dL (31.5-36.5); Mean Corpuscular Volume 87 fL (80-100); NEUTROPHILS ABSOLUTE AUTO 8.02 K/mm3 (1.96-9.15); NEUTROPHILS PERCENT AUTO 78 % (41-73); Platelet Count 175 K/mm3 (150-400); RDW Coefficient Variation 13.2 % (11.7-14.2); RDW Standard Deviation 42.3 fL (35.1-46.3); Red Blood Cell Count 4.62 M/mm3 (4.30-5.90); White Blood Cell Count 10.23 K/mm3 (4.00-11.30)
[2025-01-13 11:23] LABS: Bun/Creatinine Ratio 17.9 (12.0-20.0); Creatinine, Blood 0.67 mg/dL (0.60-1.20); Potassium, Blood 3.2 mmol/L (3.5-5.5)
[2025-01-13] MEDS ORDERED: D5W-LR 1,000 ML IV SCH (11:30)
--- NOTE | 2025-01-13 12:58 | NUR ---
CALL FROM PRIMARY RN, REGINA, REQUESTING THIS RN TO BEDSIDE TO ASSIST c ZYPREXA ADMINISTRATION. INJECTION GIVEN WITHOUT DIFFICULTY, THOUGH PATIENT DID TELL NURSE TO NEVER TOUCH HIM AGAIN, ONCE SHE HAD ALREADY STEPPED AWAY. FAMILY BACK TO BEDSIDE AND ABLE TO ADMINISTER MEDS IN PUREE THAT PATIENT HAD BEEN DECLINGING FROM PRIMARY NURSE. CARE CONTINUES.
--- NOTE | 2025-01-13 14:55 | NUR ---
NOTE BLADDER SCANNED. BLADDER SCAN SHOWED 378. CALLED DR. WILLARD, DR. WILLARD REPORTED THAT "OK TO STRAIGHT CATH DUE TO NO VOID TODAY." PT HAS FLUIDS RUNNING AT 75ML/HR. THIS RN PREFORMED STRAIGHT CATH. PT HAD 950 ML OUTPUT. PT STATED "FEELING BETTER AFTER." PT TOLERATED STRAIGHT CATH WELL, WILMA CARE PREFORMED. PT IN BED, BED IN LOWEST POSITION, CALL LIGHT IN REACH. NOTIFIED DR. WILLARD. DR. WILLARD GAVE VERBAL ORDER FOR FLOMAX IN EVENING.
[2025-01-13] MEDS ORDERED: Haloperidol Lactate Inj. 5 MG/ML Injection IV ONE (16:30)
--- NOTE | 2025-01-13 16:40 | NUR ---
NOTE PT HAS ONE ON ONE SITTER. SITTER NOTIFIED, EXTRA HELP REDIRECTING PT. PT TRYING TO GET OUT OF BED. PT NOT REDIRECTABLE. PT FLAILING ARMS, SAYING "GET ME THE HELL OUT OF HERE." NOTIFIED DIGITAL CAMPAIGN SPECIALIST. DIGITAL CAMPAIGN SPECIALIST RECOMENDED CALLING CALLED DR. WILLARD, NOTIFIED THAT XYPREXA ISN'T AVAILABLE TO BE GIVEN TILL 5. DR. WILLARD ORDERED 2MG OF HALDOL IV. PT RECEIVED MEDICATION. PT IN BED, BED AT LOWEST POSITION.
--- NOTE | 2025-01-13 19:50 | NUR ---
SHIFT SUMMARY PT A&O TO SELF AND FAMILY, PT HAS CONFUSION. PT ADMITTED DUE TO PNEUMONIA, PT ON ROOM AIR. PT CONT PULSE OX ON, SPO2 IS 96%. PT HAS HIGH BLOOD PRESSURE, HYDRALAZINE GIVEN, BLOOD PRESSURE POST MEDICATION WAS 144/60. PT HAS D5LR RUNNING AT 75ML/HR. PT STRAIGHT CATHED ONCE DURING SHIFT. DR. WILLARD STARTED PT ON FLOMAX. PT RESTING WITH EYES CLOSED WITH EVEN UNLABORED RESPIRATIONS POST ONE TIME ORDER OF HALDOL. PT TAKES MEDS CRUSHED IN APPLESAUCE, PT CONT TO REFUSE FOOD, DOES NOT EAT ADEQUATE. PT HAS ONE ON ONE SITTER. CALLED TO GIVE UPDATE. PT STILL GETTING IV ANTIBIOTICS. PT IN BED. BED IN LOWEST POSIITON, CALL LIGHT IN REACH.
[2025-01-13] MEDS ORDERED: Tamsulosin HCl 0.4 MG Cap PO SCH (21:00)
[2025-01-13] MEDS ORDERED: Melatonin 5 MG Tablet PO SCH (21:00)
--- NOTE | 2025-01-14 01:07 | NUR ---
NURSE NOTE THIS RN AND LOOM TECHNICIAN HAS ATTEMPTED MULTIPLE TIMES TO BLADDER SCAN PATIENT. PATIENT REFUSED BLADDER SCAN AND WAS VERBALLY AND PHYSICALLY AGRESSIVE. PATIENT STATED "GET THE FUCK OUT OF MY ROOM".
--- NOTE | 2025-01-14 05:58 | NUR ---
SHIFT SUMMARY PATIENT IS ALERT AND ORIENTED TO SELF ONLY. PATIENT HAS HAD NO ACUTE EVENTS THIS SHIFT. PATIENT HAS REFUSED MOST CARE THIS SHIFT. SEE PRIOR NOTE. PATIENT ALLOWED THIS RN TO DO ONE BLADDER SCAN AND SHOWED 154ML. PATIENT REPORTED PAIN AND MEDICATED PER EMAR. PATIENT HAS NO COMPLAINTS OF SOB NAUSEA OR VOMITTING THIS SHIFT. VITAL SIGNS REVIEWED. BED IN LOCKED AND LOWEST POSITION. CALL LIGHT IN PLACE.
[2025-01-14 07:30] VITALS: BP 144/58
[2025-01-14] MEDS ORDERED: Diltiazem HCl 180 MG Cap.CD PO SCH (09:00)
[2025-01-14 15:42] VITALS: BP 148/65
[2025-01-14] MEDS ORDERED: Haloperidol Lactate Inj. 5 MG/ML Injection IV PRN (17:35)
--- NOTE | 2025-01-14 17:43 | NUR ---
PT HAS BEEN ABLE TO SLEEP TODAY. PT ONLY A COULPLE TIMES VERBALIZED HE DID NOT WANT CARE PROVED WHICH HE NEEDED, BUT WAS EASY TO REDIRECT AND THEN WAS FINE ONE BEING WORKED WITH. PT HAD A BLADDER SCAN COMPLETED AND STRAIGHT CATH WITH OF 640MLS OUT. PT HAS BEEN ABLE TO VISIT PLEASTANTLY WITH FAMILY. PT STILL NEEDS HIS SITTER HE IS STILL CONFUSED AOX2. CALL LIGHT IS IN REACH WILL CONTINUE TO MONITOR.
[2025-01-14 19:48] VITALS: BP 145/58
[2025-01-15 04:29] VITALS: BP 132/61
[2025-01-15 07:56] VITALS: BP 153/55
[2025-01-15 15:32] VITALS: BP 155/60
--- NOTE | 2025-01-15 17:55 | NUR ---
PT HAS BEEN MUCH MORE ALERT TODAY AND HAS BEEN COOPERATIVE OF CARE. SITTER WAS DC'D AND SO FAR PT HAS BEEN COOPERATIVE. PT DID HAVE LOUIE PLACED AND IT IS PATIENT. PT IS REPOSITIONED Q2 HRS AND IS A VERY HEAVY TWO PERSON TO BEDSIDE COMMODE. PT NEEDED SIT TO STAND TO GET FROM COMMODE BACK TO BED. PT HAS REQUESTED TO CALL 2 TIMES TODAY. NO DISTRESS NOTED. CONTINUES TO KEEP REFUSING TRAYS AND HAS BEEN ENCOURAGED TO DRINK SUPPLEMENT DRINK. CALL LIGHT IS IN REACH BED ALARM IN PLACE.
[2025-01-15 20:42] VITALS: BP 181/164
[2025-01-16 04:45] VITALS: BP 149/66
[2025-01-16 05:50] LABS: Bun/Creatinine Ratio 23.4 (12.0-20.0); Calcium, Blood 8.6 mg/dL (8.5-10.1); Creatinine, Blood 0.85 mg/dL (0.60-1.20); Potassium, Blood 2.9 mmol/L (3.5-5.5)
--- NOTE | 2025-01-16 06:48 | NUR ---
SHIFT SUMMARY PT ADMITTED FOR PNEUMONIA AND UTI. PT IS ALERT AND ORIENTED TO SELF AND PERSON. PT IS FULL CODE, TAKES MEDS WITH APPLESAUCE. PT HAS BED ALARM ON. PT HAS LOUIE CATH THAT DRAINS WELL TO GRAVITY. PT APPEARED TO EXPERIENCE EPISODES OF HAULUCINATIONS, STATING THAT HIS WAS HERE IN THE ROOM STANDING IN THE CORNER. HE ALSO AT TIMES WOULD STATE HE IS DRIVING HIS LONG HAUL TRUCK. PT IS TWO PERSON ASSIST TO BEDSIDE COMMONDE. BED IN LOW POSITION, CALL LIGHT WITHIN REACH, RAILS TIMES 2.
[2025-01-16 07:08] VITALS: BP 154/63
[2025-01-16] MEDS ORDERED: Potassium Chloride 20 MEQ TabCR PO SCH (09:00)
[2025-01-16] MEDS ORDERED: Furosemide 40 MG Tab PO SCH (09:00)
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
[2025-01-16] MEDS ORDERED: Potassium Chloride 60 MEQ IV ONE (10:30)
[2025-01-16] MEDS ORDERED: Potassium Chl 20MEQ/Water100ML 100 ML IV STA (10:32)
[2025-01-16] MEDS ORDERED: NS 500 ML IV SCH (11:35)
[2025-01-16] MEDS ORDERED: Potassium Chloride 40 MEQ in NS 250 ML IV ONE (13:00)
--- NOTE | 2025-01-16 13:51 | NUR ---
JAY Godoy/Cristal. PT IS CALM AND COOPERATIVE WITH CARE AT THIS TIME
[2025-01-16 17:07] VITALS: BP 152/56
--- NOTE | 2025-01-16 18:27 | NUR ---
SUMMARY PT MENTATION HAS IMPROVED. ALERT AND ORIENTED X4, SITTING UP IN CHAIR. PT APOLOGETIC FOR THIS MORNINGS CONFUSION AND COMBATIVENESS WITH STAFF. January. SITTER D/C 1330. LOUIE D/C 1430. PLAN TO DISCHARGE AFTER PT CAN BE WITHOUT SITTER FOR 24 CONSECUTIVE HOURS.
[2025-01-16 19:45] VITALS: BP 156/103
[2025-01-16] MEDS ORDERED: OLANZapine 5 MG Tab PO SCH (21:00)
[2025-01-17 03:12] VITALS: BP 143/56
[2025-01-17 04:52] LABS: BASOPHILS ABSOLUTE AUTO 0.03 K/mm3 (0.00-0.23); BASOPHILS PERCENT AUTO 0 % (0-2); EOSINOPHILS ABSOLUTE AUTO 0.31 K/mm3 (0.00-0.68); EOSINOPHILS PERCENT AUTO 4 % (0-6); Hemoglobin 11.9 g/dL (13.5-17.5); IMMATURE GRAN ABSOLUTE AUTO 0.04 K/mm3 (0.00-0.10); IMMATURE GRAN PERCENT AUTO 1 % (0-1); LYMPHOCYTES ABSOLUTE AUTO 1.02 K/mm3 (0.84-5.20); LYMPHOCYTES PERCENT AUTO 12 % (21-46); MONOCYTES ABSOLUTE AUTO 0.73 K/mm3 (0.16-1.47); MONOCYTES PERCENT AUTO 9 % (4-13); Mean Corpuscular HGB 28.5 pg (26.0-34.0); Mean Corpuscular HGB Conc 32.2 g/dL (31.5-36.5); Mean Corpuscular Volume 89 fL (80-100); Mean Platelet Volume 9.9 fL (9.1-12.4); NEUTROPHILS ABSOLUTE AUTO 6.44 K/mm3 (1.96-9.15); NEUTROPHILS PERCENT AUTO 75 % (41-73); Platelet Count 183 K/mm3 (150-400); RDW Coefficient Variation 13.3 % (11.7-14.2); RDW Standard Deviation 43.1 fL (35.1-46.3); Red Blood Cell Count 4.17 M/mm3 (4.30-5.90); White Blood Cell Count 8.57 K/mm3 (4.00-11.30)
--- NOTE | 2025-01-17 05:28 | NUR ---
SHIFT SUMMARY: PT AOX3 TO PERSON, PLACE, AND SELF, CONFUSED ON SITUATION BUT PLEASANT AND REDIRECTABLE. NOT IMPULSIVE AND DOES CALL APPROPRIATELY. HAS BEEN COOPERATIVE IN CARE. WEAK MOBILITY BUT SEEMS TO BE GETTING BETTER THROUGHOUT THE SHIFT. WAS ABLE TO STAND AND PIVOT WITH 2PA AND FWW + GAIT BELT. PT HAD ONE BM IN BSC. WAS UNABLE TO VOID, BLADDER SCAN REVEALED ~600ML, SO STRAIGHT CATH PERFORMED. ~625 OUT. PT TOLERATED PROCEDURE WELL. PT TOLERATING MEDS WELL, TAKING WHOLE 1 AT A TIME IN APPLESAUCE WITH NO ISSUES. DRINKING LIQUIDS JUST FINE. PT IN BED RESTING, BED IN LOWEST POSITION, CALL LIGHT IN REACH. CONTINUING CARE.
[2025-01-17 05:33] LABS: Magnesium, Blood 1.7 mg/dL (1.6-2.4)
[2025-01-17 05:34] LABS: Bun/Creatinine Ratio 21.6 (12.0-20.0); Calcium, Blood 8.5 mg/dL (8.5-10.1); Creatinine, Blood 0.69 mg/dL (0.60-1.20); Potassium, Blood 3.2 mmol/L (3.5-5.5)
[2025-01-17 07:12] VITALS: BP 155/75
[2025-01-17] MEDS ORDERED: Potassium Chloride 20 MEQ TabCR PO SCH (09:00)
[2025-01-17 09:51] VITALS: BP 142/63
--- NOTE | 2025-01-17 14:08 | NUR ---
THIS RN NOTIFIED OF PT NOT HAVING YET VOIDED THIS SHIFT. BLADDER SCAN PERFORMED AND PT RETAINING 534 MLS. NEW ORDER RECEIVED TO STRAIGHT CATH. EMAR UPDATED.
[2025-01-17 16:07] VITALS: BP 141/55
--- NOTE | 2025-01-17 17:55 | NUR ---
SHIFT SUMMARY: Pt. A&O x 3, some confusion at times, pt up in chair this am, tolerated well. VSS, occ wet cough, no c/o pain, nausea, vomiting. Ambulates w/ 2P SBA FWW & gait belt to bedside commode/chair/bed. Fall precautions in place, tiana light in reach, and pt communicating needs.
--- NOTE | 2025-01-17 17:56 | NUR ---
SHIFT SUMMARY PT A&OX3 W/ CONFUSION, VSS, AMB W/ 2-3 ASSIST TO THE BSC, TOLERATING PO, VOIDING, AND DENIED PAIN. PT STRAIGHT CATH'D X1 THIS SHIFT FOR RETENTION, SEE PREVIOUS NOTE. INSURANCE AUTH PENDING FOR D/C. NO OTHER ACUTE CHANGES. CALL LIGHT WITHIN REACH AND BED ALARM ON FOR SAFETY.
[2025-01-17 19:50] VITALS: BP 133/85
[2025-01-18 05:40] VITALS: BP 143/80
[2025-01-18 05:43] LABS: Hematocrit 39.1 % (37.0-53.0); Hemoglobin 12.6 g/dL (13.5-17.5)
--- NOTE | 2025-01-18 05:46 | NUR ---
SHIFT SUMMARY: PT AOX3 TO PERSON, SELF AND PLACE. EASILY REDIRECTABLE. PLEASANT AND COOPERATIVE IN CARE. PT WAS ABLE TO VOID ON HIS OWN. WET HIS PULL UPS AND CHANGED. PT REQUESTED TO USE THE URINAL AND WAS ABLE TO VOID ~450ML OF DARK BROWN URINE WITH SOME CLOTS. WOKE UP IN THE MORNING WITH ANOTHER WET BRIEF. RETENTION SEEMS RESOLVED. PT COMPLAINED OF SOME PAIN AND ALLERGY LIKE SYMPTOMS. MEDICATED PER EMR. WAS ABLE TO SLEEP WELL SITTING UP. PT CONFUSION SEEMS TO COME AND GO BUT IS EASILY REORIENTED. FOLLOWS COMMANDS AND IS GETTING BETTER AT STANDING, THOUGH STILL A TWO PERSON ASSIST. PT IN BED SLEEPING, BED IN LOWEST POSITION, CALL LIGHT IN REACH. CONTINUING CARE.
[2025-01-18 06:05] LABS: Bun/Creatinine Ratio 17.7 (12.0-20.0); Calcium, Blood 8.6 mg/dL (8.5-10.1); Creatinine, Blood 0.73 mg/dL (0.60-1.20); Magnesium, Blood 1.9 mg/dL (1.6-2.4); Potassium, Blood 3.5 mmol/L (3.5-5.5)
[2025-01-18 08:01] VITALS: BP 155/64
[2025-01-18] MEDS ORDERED: ASPI81CH PO (14:10)
[2025-01-18] MEDS ORDERED: LORA10ER PO (14:12)
[2025-01-18] MEDS ORDERED: MELATONIN 5 MG1 EACH PO (14:13)
[2025-01-18] MEDS ORDERED: OLAN2.5 PO (14:14)
[2025-01-18] MEDS ORDERED: POTCHL20ER PO (14:14)
[2025-01-18] MEDS ORDERED: TAMS.4ER PO (14:15)
[2025-01-18] MEDS ORDERED: SENN187 PO (14:15)
--- NOTE | 2025-01-18 15:28 | NUR ---
DISCHARGE SUMMARY: [facility] Patient A&Ox3, VSS, SBA 2P w/fww. Tolerating PO, denied pain/N/V. Belongings were returned and given to . Patient wheeled out by transport and discharge instructions handed to transport.
--- NOTE | 2025-01-18 15:33 | NUR ---
DISCHARGE NOTE PT D/C TO SNF AT 1508. PT A&OX2, VSS, AMB W/ ASSIST, TOLERATING PO, VOIDING, AND DENIED PAIN. BELONGINGS WERE RETURNED. DISCHARGE PACKET GIVEN TO TRANSPORT. HARD SCRIPT PLACED IN DISCHARGE PACKET AND COPY PLACED IN CHART. TRANSPORT ESCOURTED PT OUT VIA W/C. THIS RN CALLED [facility] AND GAVE REPORT TO EDWARD BAUM. FAMILY NOTIFIED OF TRANSFER.
== END 2025-01-18 15:09 | DRG 871 ==
LOC: ER 16:43 → MEDS 23:29
PROVIDERS: Emergency Medicine; Family Medicine; Hospitalist; Internal Medicine; ADMIT Internal Medicine
PROC: 3E03329 Introduction of Other Anti-infective into Peripheral Vein, Percutaneous Approach (ICD-10-PCS; 2025-01-09)
PROC: 0T9B70Z Drainage of Bladder with Drainage Device, Via Natural or Artificial Opening (ICD-10-PCS; principal; 2025-01-16)
DX: A41.9 Sepsis, unspecified organism (principal); G92.8 Other toxic encephalopathy; J96.01 Acute respiratory failure with hypoxia; J18.9 Pneumonia, unspecified organism; J69.0 Pneumonitis due to inhalation of food and vomit; T83.511A Infection and inflammatory reaction due to indwelling urethral catheter, initial encounter; Z68.41 Body mass index [BMI] 40.0-44.9, adult; F03.911 Unspecified dementia, unspecified severity, with agitation; F05 Delirium due to known physiological condition; E11.9 Type 2 diabetes mellitus without complications; I10 Essential (primary) hypertension; I35.0 Nonrheumatic aortic (valve) stenosis; R44.1 Visual hallucinations; I27.20 Pulmonary hypertension, unspecified; E66.9 Obesity, unspecified; N40.1 Benign prostatic hyperplasia with lower urinary tract symptoms; R33.8 Other retention of urine; R13.10 Dysphagia, unspecified; R53.81 Other malaise; Z88.8 Allergy status to other drugs, medicaments and biological substances; Z79.899 Other long term (current) drug therapy; Z79.82 Long term (current) use of aspirin; Z79.84 Long term (current) use of oral hypoglycemic drugs; Z79.811 Long term (current) use of aromatase inhibitors; Z79.891 Long term (current) use of opiate analgesic; Z79.2 Long term (current) use of antibiotics; Z89.611 Acquired absence of right leg above knee; Z87.19 Personal history of other diseases of the digestive system
CPT/HCPCS: 0202U; 0528U; 36415; 70450; 71045; 74230; 80048; 80053; 81001; 82607; 82728; 82746; 82803; 82947; 83540; 83550; 83605; 83735; 83880; 84100; 84145; 84443; 85014; 85018; 85025; 85045; 87040; 87086; 92526; 92610; 92611; 94640; 94664; 94760; 94762; 96365; 96375; 97110; 97116; 97161; 97530; 99285-25; A9270; J0360; J0456; J0696; J1171; J1630; J1650; J1815; J1938; J2060; J2405; J3480; J7040; J7050; J7121; J7512

== ENCOUNTER 2025-01-22 23:33 | Inpatient (IN) | payer OTHER ==
[~2025-01-22] VITALS: Ht 185.4 cm; Wt 117.9 kg
[~2025-01-22 23:33] MED LIST changes: +ALLEGRA ALLERG180 MG PO; +ATOR40TA PO; +CAPSAICIN 0.075% TOP; +Flonase 0.05% N16 GM; +IPRATROPIUM BRO30 ML; +LORA10ER PO; +MELATONIN 5 MG1 EACH PO; +MOME220I INH; +OLAN2.5 PO; +POTCHL20ER PO; +SENN187 PO
[2025-01-22] MEDS ORDERED: NS 1,000 ML IV ONE (23:40)
[2025-01-23] VITALS (28 sets, daily range): BP systolic 90–162; BP diastolic 38–115
[2025-01-23 00:02] LABS: BASOPHILS ABSOLUTE AUTO 0.03 K/mm3 (0.00-0.23); BASOPHILS PERCENT AUTO 0 % (0-2); EOSINOPHILS ABSOLUTE AUTO 0.26 K/mm3 (0.00-0.68); EOSINOPHILS PERCENT AUTO 2 % (0-6); Hemoglobin 11.1 g/dL (13.5-17.5); IMMATURE GRAN PERCENT AUTO 1 % (0-1); LYMPHOCYTES ABSOLUTE AUTO 1.33 K/mm3 (0.84-5.20); LYMPHOCYTES PERCENT AUTO 13 % (21-46); MONOCYTES PERCENT AUTO 7 % (4-13); Mean Corpuscular HGB 28.5 pg (26.0-34.0); Mean Corpuscular HGB Conc 31.7 g/dL (31.5-36.5); Mean Corpuscular Volume 90 fL (80-100); Mean Platelet Volume 10.7 fL (9.1-12.4); NEUTROPHILS ABSOLUTE AUTO 8.22 K/mm3 (1.96-9.15); NEUTROPHILS PERCENT AUTO 77 % (41-73); Platelet Count 181 K/mm3 (150-400); RDW Coefficient Variation 13.3 % (11.7-14.2); RDW Standard Deviation 43.2 fL (35.1-46.3); Red Blood Cell Count 3.89 M/mm3 (4.30-5.90); White Blood Cell Count 10.64 K/mm3 (4.00-11.30)
[2025-01-23 00:10] LABS: Source, Urine Foley catheter
[2025-01-23 00:14] LABS: Albumin/Globulin Ratio 0.9 (0.8-1.8); Bilirubin, Total 0.4 mg/dL (0.1-1.0); Bun/Creatinine Ratio 14.2 (12.0-20.0); Calcium, Blood 8.4 mg/dL (8.5-10.1); Creatinine, Blood 1.62 mg/dL (0.60-1.20); Globulin, Blood 3.2 g/dL (2.2-4.0); Potassium, Blood 5.7 mmol/L (3.5-5.5); Total Protein, Blood 6.2 g/dL (6.4-8.2)
[2025-01-23 00:17] LABS: Bilirubin, Urine Neg (Neg); Blood, Urine Neg (Neg); Glucose Qualitative, Urine Neg (Neg); Ketones, Urine 1+ (Neg); Leukocyte Esterase, Urine Neg (Neg); Nitrite, Urine Neg (Neg); Protein, Urine 1+ (Neg); Specific Gravity, Urine 1.015 (1.003-1.022); Urobilinogen, Urine NORM (Normal)
[2025-01-23 00:26] LABS: Appearance, Urine Clear (Clear); Color, Urine Yellow (P-Yellow)
[2025-01-23] MEDS ORDERED: Calcium Gluconate 10% 100 MG/ML INJ IV ONE (00:30)
[2025-01-23] MEDS ORDERED: Albuterol 2.5 MG/3 ML VIAL INH SCH (00:30)
[2025-01-23] MEDS ORDERED: Insulin Regular 100 Unit/ML 1ML Dose IV ONE (02:00)
[2025-01-23] MEDS ORDERED: Ondansetron HCl 2 MG / ML 2ML Vial IV PRN (02:00)
[2025-01-23] MEDS ORDERED: Dextrose 50% 50 ML Syringe IV ONE (02:00)
[2025-01-23] MEDS ORDERED: NS 1,000 ML IV ONE (02:00)
[2025-01-23 02:40] LABS: Magnesium, Blood 1.8 mg/dL (1.6-2.4)
[2025-01-23 02:58] LABS: International Normalized Ratio 1.05; Prothrombin Time Results 11.2 Sec (9.7-11.5)
[2025-01-23 05:00] LABS: Bun/Creatinine Ratio 16.2 (12.0-20.0); Calcium, Blood 8.3 mg/dL (8.5-10.1); Creatinine, Blood 1.54 mg/dL (0.60-1.20)
--- NOTE | 2025-01-23 05:48 | NUR ---
SHIFT SUMMARY: PT ARRIVED FROM THE ED SNORING AND DIFFICULT TO AROUSE INITIALLY. AFTER BEING MOVED TO THE BED HE WAS VERY AGITATED AND NOT REDIRECTABLE, HE DID NOT SAY ANYTHING INTELLIGIBLE AND DID NOT FOLLOW COMMAND. HE WAS ON 2LPM O2 VIA NC AND REMAINED ON IT FOR THE REST OF THE SHIFT. HE HAD A FEW LOW BLOOD PRESSURES, BUT THE IMPROVED. HR WAS HIGH 50S-60S, SINUS. HE HAS A LOUIE DRAINING TO GRAVITY AND 2 PERIPHERAL IVS. FAMILY WAS AT BEDSIDE BRIEFLY AND STATED THAT HIS BASELINE IS A&OX4 AND HE USES A WALKER TO GET AROUND. THEY SAID HE HAS BEEN ALTERED FOR A COUPLE WEEKS THOUGH WHILE DEALING WITH A UTI AND THEN PNEUMONIA.
[2025-01-23] MEDS ORDERED: Polyethylene Glycol 3350 17 gm PO PRN (07:40)
[2025-01-23] MEDS ORDERED: NS 500 ML IV SCH (07:40)
[2025-01-23] MEDS ORDERED: Docusate Sodium/Senna 1 Tab PO PRN (07:45)
[2025-01-23] MEDS ORDERED: Acetaminophen 325 MG TABLET PO PRN (07:45)
[2025-01-23] MEDS ORDERED: Albuterol 2.5 MG/3 ML VIAL INH PRN (07:45)
[2025-01-23] MEDS ORDERED: Mometasone/Formoterol MDI 200/5 mcg 13 GM INH SCH (07:50)
[2025-01-23] MEDS ORDERED: Prochlorperazine Edisylate 10 mg Vial IV PRN (07:50)
--- NOTE | 2025-01-23 08:08 | NUR ---
CARE ASSUMPTION DURING REPORT FROM NIGHTSHIFT NURSE PT WAS ASLEEP AND RESTING IN BED. HE DID NOT AWAKE DURING BEDSIDE REPORT. PT IS ON 2L O2 VIA NASAL CANNULA WITH SAT'S ABOVE 92% VIA MONITOR. PER MONITOR PTS HR WAS IN THE 60'S. PT CONTINUED TO SLEEP AND REST DURING THE REST OF REPORT.
[2025-01-23 08:27] LABS: BASOPHILS ABSOLUTE AUTO 0.02 K/mm3 (0.00-0.23); BASOPHILS PERCENT AUTO 0 % (0-2); EOSINOPHILS ABSOLUTE AUTO 0.14 K/mm3 (0.00-0.68); EOSINOPHILS PERCENT AUTO 1 % (0-6); Hematocrit 36.2 % (37.0-53.0); Hemoglobin 11.5 g/dL (13.5-17.5); IMMATURE GRAN ABSOLUTE AUTO 0.07 K/mm3 (0.00-0.10); IMMATURE GRAN PERCENT AUTO 1 % (0-1); LYMPHOCYTES ABSOLUTE AUTO 1.48 K/mm3 (0.84-5.20); LYMPHOCYTES PERCENT AUTO 15 % (21-46); MONOCYTES ABSOLUTE AUTO 0.76 K/mm3 (0.16-1.47); MONOCYTES PERCENT AUTO 8 % (4-13); Mean Corpuscular HGB 28.6 pg (26.0-34.0); Mean Corpuscular HGB Conc 31.8 g/dL (31.5-36.5); Mean Corpuscular Volume 90 fL (80-100); Mean Platelet Volume 10.8 fL (9.1-12.4); NEUTROPHILS ABSOLUTE AUTO 7.38 K/mm3 (1.96-9.15); NEUTROPHILS PERCENT AUTO 75 % (41-73); Platelet Count 192 K/mm3 (150-400); RDW Coefficient Variation 13.2 % (11.7-14.2); RDW Standard Deviation 43.3 fL (35.1-46.3); Red Blood Cell Count 4.02 M/mm3 (4.30-5.90); White Blood Cell Count 9.85 K/mm3 (4.00-11.30)
[2025-01-23] MEDS ORDERED: Furosemide 10 MG / ML 2ML Vial IV ONE (08:40)
[2025-01-23 08:44] LABS: Bilirubin, Total 0.4 mg/dL (0.1-1.0); Bun/Creatinine Ratio 16.2 (12.0-20.0); Calcium, Blood 8.9 mg/dL (8.5-10.1); Creatinine, Blood 1.36 mg/dL (0.60-1.20); Globulin, Blood 3.1 g/dL (2.2-4.0); Potassium, Blood 4.9 mmol/L (3.5-5.5); Total Protein, Blood 6.1 g/dL (6.4-8.2)
[2025-01-23] MEDS ORDERED: Aspirin 81 MG Chew PO SCH (09:00)
[2025-01-23] MEDS ORDERED: Dorzolamide/Timolol Opth Soln 10 ML BOTHEYES SCH (09:00)
[2025-01-23] MEDS ORDERED: Brimonidine Tartrate 0.2% Opth 5 ml BOTHEYES SCH ×2 (09:00)
[2025-01-23] MEDS ORDERED: Lactobacil 2-S.Thermo-Bifido 1 1 Cap PO SCH (09:00)
[2025-01-23] MEDS ORDERED: Tamsulosin HCl 0.4 MG Cap PO SCH (09:00)
--- NOTE | 2025-01-23 09:16 | NUR ---
UPDATE THIS RN SPOKE WITH SPOUSE ZAYRA. DISCUSSION HELD REGARDING JAIL PLANS OF CARE INCLUDING PACEMAKER PLACEMENT IF NECESSARY FOR BRADYCARDIA. ZAYRA STATED "PT WOULD NOT WANT A PACEMAKER". CONVERSATION DISCUSSED WITH DR. LONG.
[2025-01-23] MEDS ORDERED: OLANZapine 10 MG Vial IM PRN (09:25)
--- NOTE | 2025-01-23 09:38 | NUR ---
UPDATE DURING MORNING CARE PT WAS AGGITATED AND AGGRESSIVE TORWARDS STAFF. HE STATED TO STAFF TO "FUCK OFF" AND "LEAVE MY ROOM" WHEN ATTEMPTING TO ASSESS AND PROVIDE CARE. PT HAS CONTINUOUSLY BEEN AGGITATED WHEN STAFF ENTERS THE ROOM AND HAS MADE THREATS ABOUT HARMING HIS . PT FREQUENTLY FALLS IN AND OUT OF SLEEP BUT WHEN WOKEN UP HE BEGINS TO BECOME AGGITATED AGAIN.
[2025-01-23] MEDS ORDERED: Insulin Human Lispro 100 Units/ML 3ML Syringe SC SCH (11:30)
[2025-01-23] MEDS ORDERED: Amoxicillin/Clavulanate K 875 MG Tab PO SCH (12:00)
[2025-01-23 12:38] LABS: Bun/Creatinine Ratio 17.2 (12.0-20.0); Calcium, Blood 8.8 mg/dL (8.5-10.1); Creatinine, Blood 1.22 mg/dL (0.60-1.20); Potassium, Blood 4.4 mmol/L (3.5-5.5)
--- NOTE | 2025-01-23 13:15 | NUR ---
PT GOES BY RAMILA. ZAYRA AT BEDSIDE. PT'S EYES CLOSED, RESP EVEN AND UNLABORED FOR THE ENTIRETY OF THE CONVERSATION. PT HAS DEMENTIA AT BASELINE. ZAYRA ELECTS TO CHANGE PT'S STATUS TO COMFORT CARE, WITH A PLAN TO DISCHARGE WITH HOSPICE, [facility]IA [facility]. PT IS A . CARPENTER HELPER MAINTENANCE UPDATED, BEDSIDE RN AND DR. LONG NOTIFIED. PT TO TX TO MED FLOOR WITH NO TELE.
[2025-01-23] MEDS ORDERED: Morphine Sulfate 20 MG/1ML 1 ML Oral Syringe SL PRN (13:50)
[2025-01-23] MEDS ORDERED: Haloperidol Lactate 2 MG/ML Conc 1ML Dose PO PRN (13:50)
[2025-01-23] MEDS ORDERED: LORazepam 1 MG Tab PO PRN (13:50)
--- NOTE | 2025-01-23 18:50 | NUR ---
SHIFT SUMMARY AT THE BEGINNING OF SHIFT PT WAS EXTREMELY AGGITATED AND AGGRESSIVE TOWARDS STAFF FREQUNTLY CUSSING AND REFUSING CARE. THE MORNING PROGRESSED THE PT SLEPT FOR MOST OF THE LATE MORNING AND EARLY AFTERNOON UNTIL FAMILY ARRIVED AND BEGAN WAKING UP. PT BECAME LESS AGGITATED AND WAS PLEASANT WITH STAFF REQUESTING SOMETHING TO EAT. PTS GLUCOSE LEVELS REMAINED STABLE THROUGHOUT SHIFT BUT RECEIVED A DOSE OF 1 UNIT OF INSULIN ON THE LAST CHECK FOR THE SHIFT. DURING THE SHIFT PTS FAMILY WAS CONTACTED ABOUT THE PROGRESSION OF CARE FOR THE PT AND ENDED UP AGREEING TO PUT THE PT ON COMFORT CARE MEASURES DUE TO NOT WANTING TO PUT HIM THROUGH A PROCEDURE TO RECEIVE A PACEMAKER. PT HAS CONTINUED TO KEEP AN SPO2 PROBE ON AND IS CURRENTLY SATING AT 96% WITH HR IN 60'S. HE HAS NOT GONE DOWN BELOW 60 BEATS PER MINUTE FOR US THROUGHOUT THIS SHIFT. PT IS CURRENLTY ASLEEP AND RESTING COMFORTABLY IN BED.
--- NOTE | 2025-01-24 05:29 | NUR ---
SHIFT SUMMARY: PT HAS BEEN PLEASANT AND COOPERATIVE THIS SHIFT. HE HAS TRANSIENT CONFUSION BUT IS VERY REDIRECTABLE. HE HAS BEEN SWALLOWING WELL, TAKING PO MEDS. PERIPHERAL IVS REMAIN IN PLACE IN THE EVENT OF NEEDING IV MEDS FOR COMFORT BUT PT HAS NOT HAD ANY COMPLAINT. LOUIE ALSO REMAINS IN PLACE WITH GOOD OUTPUT.
[2025-01-24 08:43] VITALS: BP 162/88
[2025-01-24] MEDS ORDERED: Enoxaparin 40 MG/0.4 ML SYR SC SCH (10:23)
--- NOTE | 2025-01-24 12:47 | NUR ---
CALL TO DR LONG TO NOTIFY THAT PT B/P IS ELEVATED SBP 160S. B/P CHECKED Q SHIFT AND RECHECKED AT NOON ELEVATED. PER DR LONG ONLY CHECK VS ONCE DAY. SHE WILL REVIEW AND PLACE ORDERS NEEDED. CALL TO PALLATIVE CARE NURSE TO ASK QUESTIONS ABOUT GOALS OF CARE FOR PT. DEFERRED TO HER NOTE FROM 01/23. ASKING QUESTIONS ABOUT RESTARTING HIS MEDICATIONS. REVIEWED HIS MEDICATIONS. HAVE NOT RESTARTED ANY CARDIAC MEDS AT THIS TIME. REVIEWED DIETARY ORDERS RECOMMENDED BY SPEECH ON LAST ADMISSION 01/11 WITH PT. HE REFUSED MILDLY THICK LIQUIDS WELL CRUSHED MEDICAITONS. PT ABLE TO TAKE PILLS WHOLE WITH PUREE. REFUSED ORAL CARE AT NOON BUT REMAINED AT 90 DEG FOR MEALS TODAY. PLANNING FOR D/C TO [facility] WITH HOSPICE
--- NOTE | 2025-01-24 14:59 | NUR ---
PT DISCHARGED TO [facility], TRANSPORTED VIA WHEELCHAIR. SHIFT SUMMARY: NEURO: PATIENT ALERT AND ORIENTED X4, DISORIENTED TO SITUATION. MOVE ALL EXTREMITITES, SOME RESTRICTED ROM IN LLE DUE TO PAIN IN KNEE. HARD OF HEARING IN HIS LEFT EAR AND HAS MISSING UPPER TEETH. DIET: REVIEWED RECOMMENDED DIET FROM SHEET LAYER FOR PRIOR VISIT PT REFUSED MILDLY THICKENED LIQ. PT CURRENTLY ON COMFORT CARE AND BEING ADMITTED TO HOSPICE TODAY. CARDIO: SBP 160S TODAY HR 70-80S. CARVEDILOL RESTARTED BY DR LONG. PULM: WHEEZING IN BILATERAL UPPER LOBES OTHERWISE CLEAR/DIM. CURRENTLY ON 2LPM OF O2, SPO2 >95% ON 2LPM. GI: SOFT ABDOMEN, PASSING FLATUS. ATTEMPTED TO STOOL X2. SOME HEMORROIDS PRESENT TO RECTUM : LOUIE CATH REMOVED AT 1345. DUE TO VOID. SOME EXCORIATION TO SCROTUM, BARRIER CREAM APPLIED. SKIN: SOME MILD PINK/REDNESS TO BREAST FOLDS, BELOW PANNUS AND GROIN FOLDS. CLEANSED AND PATTED DRY, APPLIED NON MEDICATED POWDER TO AREAS, NO ODOR. AND FRIENDS INTO VISIT TODAY. TIME SPENT WITH DISCUSSING HOSPICE CARE AND SERVICES PROVIDED. ALSO DISCUSSED WITH FAMILY MEMBERS OVER THE PHONE PER REQUEST OF THE .
--- NOTE | 2025-01-24 15:07 | NUR ---
CALLED TO GIVE REPORT TO [facility] X 2, VOICEMAIL RECIEVED. LEFT MESSAGE TO RETURN CALL REGARDING AND INCOMING ADMIT.
[2025-01-24] MEDS ORDERED: Carvedilol 25 MG Tab PO SCH (17:00)
== END 2025-01-24 14:56 | disposition hospice, home (50) | DRG 308 ==
LOC: ER 23:33 → ICUE 23:34 → ER 01-23 00:13 → MEDS 01-23 00:13 → ICUE 01-23 02:40
PROVIDERS: Student in an Organized Health Care Education/Training Program; ADMIT Internal Medicine
PROC: 0T9B70Z Drainage of Bladder with Drainage Device, Via Natural or Artificial Opening (ICD-10-PCS; principal; 2025-01-23)
DX: R00.1 Bradycardia, unspecified (principal); G93.41 Metabolic encephalopathy; N17.9 Acute kidney failure, unspecified; E11.9 Type 2 diabetes mellitus without complications; N40.1 Benign prostatic hyperplasia with lower urinary tract symptoms; R13.10 Dysphagia, unspecified; F03.90 Unspecified dementia, unspecified severity, without behavioral disturbance, psychotic disturbance, mood disturbance, and anxiety; R33.8 Other retention of urine; I35.0 Nonrheumatic aortic (valve) stenosis; E87.5 Hyperkalemia; Z66 Do not resuscitate; I10 Essential (primary) hypertension; Z79.899 Other long term (current) drug therapy; Z79.84 Long term (current) use of oral hypoglycemic drugs; Z79.82 Long term (current) use of aspirin; Z79.02 Long term (current) use of antithrombotics/antiplatelets; Z88.8 Allergy status to other drugs, medicaments and biological substances; Z51.5 Encounter for palliative care
CPT/HCPCS: 51702; 71045; 80048; 80053; 82947; 83735; 83880; 84484; 85025; 85610; 93005; 93010; 94640; 94664; 94760; 94762; A9270; J0612; J1938; J7030

== ENCOUNTER 2025-01-24 22:01 | Emergency (ER) | payer OTHER ==
[~2025-01-24] VITALS: Ht 177.8 cm; Wt 133.8 kg
[2025-01-25 01:00] VITALS: BP 150/69
== END 2025-01-25 02:18 | disposition home or self-care (01) ==
LOC: ER 22:01
DX: Z51.5 Encounter for palliative care (principal); R53.1 Weakness; I10 Essential (primary) hypertension; E11.9 Type 2 diabetes mellitus without complications; Z88.8 Allergy status to other drugs, medicaments and biological substances; Z79.899 Other long term (current) drug therapy; Z79.84 Long term (current) use of oral hypoglycemic drugs; Z79.82 Long term (current) use of aspirin
CPT/HCPCS: 99285